=== PATIENT | female | born 1955 | race Caucasian/White ===

== ENCOUNTER 2022-05-15 04:39 | Inpatient (IN) | payer MEDICARE, OTHER ==
[2022-05-15] MEDS ORDERED: SODIUM CHLORIDE 0.9% 1,000 ML IV STA (05:25)
--- NOTE | 2022-05-15 05:26 | ED ---
Neuro HPI - General Chief Complaint: Dizziness Stated Complaint: Lightheaded, weakness Time Seen by Provider: 05/15/22 04:53 Source: patient, family, RN notes reviewed, old records reviewed Mode of arrival: ambulatory Limitations: no limitations - History of Present Illness Is the patient presenting with stroke symptoms?: Yes Last Known Well Time: 23:30 -: hour(s) Initial Comments: This is a 66-year-old female with history of high blood pressure high cholesterol coming in with signs and symptoms of CVA. Patient has right-sided facial droop right-sided weakness compared to left. Patient played golf today with no difficulty and began to have symptoms from midnight tonight called ambulance around 1:00 and presents to emergency room route 5:30 after presenting to another emergency room and [place] telling them to come to [facility] to get further imaging and testing. Patient has no headache also had some mild visual changes. Location: right face, right arm, right leg History of same: No Place: home Severity: mild Quality: weak, numb, tingling Improves With: none Worsens With: none Context: gradual onset Associated Symptoms: denies other symptoms Treatments Prior to Arrival: none - Related Data Allergies/Adverse Reactions: Allergies Allergy/AdvReac Type Severity Reaction Status Date / Time No Known Allergies Allergy Verified 05/15/22 04:52 Review of Systems ROS Statement: Those systems with pertinent positive or pertinent negative responses have been documented in the HPI. ROS Other: All systems not noted in ROS Statement are negative. General Exam General appearance: alert, in no apparent distress Head exam: Present: atraumatic, normocephalic, normal inspection Eye exam: Present: normal appearance, PERRL, EOMI. Absent: scleral icterus, conjunctival injection, periorbital swelling ENT exam: Present: normal exam, mucous membranes moist Neck exam: Present: normal inspection. Absent: tenderness, meningismus, lymphadenopathy Respiratory exam: Present: normal lung sounds bilaterally. Absent: respiratory distress, wheezes, rales, rhonchi, stridor Cardiovascular Exam: Present: regular rate, normal rhythm, normal heart sounds. Absent: systolic murmur, diastolic murmur, rubs, gallop, clicks GI/Abdominal exam: Present: soft, normal bowel sounds. Absent: distended, ten derness, guarding, rebound, rigid Extremities exam: Present: normal inspection, full ROM, normal capillary refill. Absent: tenderness, pedal edema, joint swelling, calf tenderness Back exam: Present: normal inspection Neurological exam: Present: alert, oriented X3, CN II-XII intact Psychiatric exam: Present: normal affect, normal mood Skin exam: Present: warm, dry, intact, normal color. Absent: rash Stroke MDM - Lab Data Result diagrams: 05/15/22 05:25 05/15/22 05:25 Lab Results 05/15/22 05/15/22 05/15/22 Range/Units 05:25 05:25 05:25 WBC 5.2 (3.8-10.6) k/uL RBC 4.05 (3.80-5.40) m/uL Hgb 12.6 (11.4-16.0) gm/dL Hct 37.2 (34.0-46.0) % MCV 92.0 (80.0-100.0) fL MCH 31.0 (25.0-35.0) pg MCHC 33.7 (31.0-37.0) g/dL RDW 13.2 (11.5-15.5) % Plt Count 213 (150-450) k/uL MPV 7.6 Neutrophils % 71 % Lymphocytes % 22 % Monocytes % 5 % Eosinophils % 1 % Basophils % 0 % Neutrophils # 3.7 (1.3-7.7) k/uL Lymphocytes # 1.2 (1.0-4.8) k/uL Monocytes # 0.3 (0-1.0) k/uL Eosinophils # 0.0 (0-0.7) k/uL Basophils # 0.0 (0-0.2) k/uL PT 10.3 (9.0-12.0) sec INR 0.9 (<1.2) APTT 21.3 L (22.0-30.0) sec Sodium 137 (137-145) mmol/L Potassium 4.2 (3.5-5.1) mmol/L Chloride 104 (98-107) mmol/L Carbon Dioxide 24 (22-30) mmol/L Anion Gap 9 mmol/L BUN 16 (7-17) mg/dL Creatinine 0.54 (0.52-1.04) mg/dL Est GFR (CKD-EPI)AfAm >90 (>60 ml/min/1.73 sqM) Est GFR (CKD-EPI)NonAf >90 (>60 ml/min/1.73 sqM) Glucose 118 H (74-99) mg/dL POC Glucose (mg/dL) (70-110) mg/dL POC Glu Poker Dealer ID Calcium 9.1 (8.4-10.2) mg/dL Total Bilirubin 0.7 (0.2-1.3) mg/dL AST 26 (14-36) U/L ALT 28 (4-34) U/L Alkaline Phosphatase 81 (38-126) U/L Troponin I (0.000-0.034) ng/mL Total Protein 6.3 (6.3-8.2) g/dL Albumin 4.3 (3.5-5.0) g/dL Urine Opiates Screen (NotDetected) Ur Oxycodone Screen (NotDetected) Urine Methadone Screen (NotDetected) Ur Propoxyphene Screen (NotDetected) Ur Barbiturates Screen (NotDetected) U Tricyclic Antidepress (NotDetected) Ur Phencyclidine Scrn (NotDetected) Ur Amphetamines Screen (NotDetected) U Methamphetamines Scrn (NotDetected) U Benzodiazepines Scrn (NotDetected) Urine Cocaine Screen (NotDetected) U Marijuana (THC) Screen (NotDetected) 05/15/22 05/15/22 05/15/22 Range/Units 05:25 05:41 05:58 WBC (3.8-10.6) k/uL RBC (3.80-5.40) m/uL Hgb (11.4-16.0) gm/dL Hct (34.0-46.0) % MCV (80.0-100.0) fL MCH (25.0-35.0) pg MCHC (31.0-37.0) g/dL RDW (11.5-15.5) % Plt Count (150-450) k/uL MPV Neutrophils % % Lymphocytes % % Monocytes % % Eosinophils % % Basophils % % Neutrophils # (1.3-7.7) k/uL Lymphocytes # (1.0-4.8) k/uL Monocytes # (0-1.0) k/uL Eosinophils # (0-0.7) k/uL Basophils # (0-0.2) k/uL PT (9.0-12.0) sec INR (<1.2) APTT (22.0-30.0) sec Sodium (137-145) mmol/L Potassium (3.5-5.1) mmol/L Chloride (98-107) mmol/L Carbon Dioxide (22-30) mmol/L Anion Gap mmol/L BUN (7-17) mg/dL Creatinine (0.52-1.04) mg/dL Est GFR (CKD-EPI)AfAm (>60 ml/min/1.73 sqM) Est GFR (CKD-EPI)NonAf (>60 ml/min/1.73 sqM) Glucose (74-99) mg/dL POC Glucose (mg/dL) 118 H (70-110) mg/dL POC Glu Poker Dealer ID Shila Chambers Calcium (8.4-10.2) mg/dL Total Bilirubin (0.2-1.3) mg/dL AST (14-36) U/L ALT (4-34) U/L Alkaline Phosphatase (38-126) U/L Troponin I <0.012 (0.000-0.034) ng/mL Total Protein (6.3-8.2) g/dL Albumin (3.5-5.0) g/dL Urine Opiates Screen Not Detected (NotDetected) Ur Oxycodone Screen Not Detected (NotDetected) Urine Methadone Screen Not Detected (NotDetected) Ur Propoxyphene Screen Not Detected (NotDetected) Ur Barbiturates Screen Not Detected (NotDetected) U Tricyclic Antidepress Not Detected (NotDetected) Ur Phencyclidine Scrn Not Detected (NotDetected) Ur Amphetamines Screen Not Detected (NotDetected) U Methamphetamines Scrn Not Detected (NotDetected) U Benzodiazepines Scrn Not Detected (NotDetected) Urine Cocaine Screen Not Detected (NotDetected) U Marijuana (THC) Screen Not Detected (NotDetected) - NIH Stroke Scale 1a. Level of Consciousness: (0) alert 1b. LOC Questions: (0) answers correctly 1c. LOC Commands: (0) performs tasks correctly 2. Best Gaze: (0) normal 3. Visual: (0) no visual loss 4. Facial Palsy: (1) minor paralysis 5a. Motor Arm Left: (0) no drift 5b. Motor Arm Right: (1) drift 6a. Motor Leg Left: (0) no drift 6b. Motor Leg Right: (1) drift 7. Limb Ataxia: (2) present 2 limbs 8. Sensory: (0) normal 9. Best Language: (0) no aphasia 10. Dysarthria: (0) normal 11. Extinction/Inattention: (0) no abnormality - Thrombolytic Inclusion/Exclusion Thrombolytic Exclusion Criteria: Symptom Onset > 4.5 Hours - Medical Decision Making 66 female with cholesterol high blood pressure coming in with stroke symptoms started around midnight last night seen in our ER around 5:30 this morning. Patient was a code stroke advise against TPA, patient will be admitted for neurology to evaluate - Radiology Data Radiology results: report reviewed (CT brain CT had neck negative for acute disease), image reviewed Past Medical History Past Medical History: Hyperlipidemia, Hypertension History of Any Multi-Drug Resistant Organisms: None Reported Past Surgical History: Breast Surgery Additional Past Surgical History / Comment(s): lymp nodes removed left breast Past Psychological History: No Psychological Hx Reported Smoking Status: Never smoker Past Alcohol Use History: Occasional Past Drug Use History: None Reported Course Vital Signs 05/15/22 05/15/22 05/15/22 04:43 04:52 05:25 Temperature 97.6 F 97.9 F Pulse Rate 57 L 58 L 65 Respiratory 22 16 15 Rate Blood Pressure 127/93 123/69 123/69 O2 Sat by Pulse 99 97 99 Oximetry Fraction of Inspired Oxygen (FIO2) 05/15/22 05/15/22 05/15/22 05:40 05:56 06:10 Temperature Pulse Rate 67 63 Respiratory 15 15 Rate Blood Pressure 128/71 120/66 O2 Sat by Pulse 100 100 Oximetry Fraction of 99 Inspired Oxygen (FIO2) 05/15/22 05/15/22 06:18 06:29 Temperature Pulse Rate 57 L 61 Respiratory 16 15 Rate Blood Pressure 110/72 107/66 O2 Sat by Pulse 100 100 Oximetry Fraction of Inspired Oxygen (FIO2) - Reevaluation(s) Reevaluation #1: 05/15/22 05:56 Medical record is reviewed Reevaluation #2: 05/15/22 05:57 Code stroke paged on patient arrival Reevaluation #3: 05/15/22 06:37 Symptoms are mildly improving here with hydration and oxygenation Reevaluation #4: 05/15/22 06:37 Patient was not a TPA candidate due to onset of symptoms - Consultations Consultation #1: Spoke with sound who agrees to admit this patient Consultation #2: Spoke with neuro interventional is no intervention Critical Care Time Critical Care Time: Yes Total Critical Care Time: 31 Disposition Clinical Impression: CVA (cerebral vascular accident), Dehydration Disposition[facility] Condition: Fair Is patient prescribed a controlled substance at d/c from ED?: No Referrals: Nonstaff,Physician [Primary Care Provider] - 1-2 days Time of Disposition: 06:35
[2022-05-15 05:43] LABS: Glucose,Whole Blood 118 mg/dL (70-110)
[2022-05-15 05:46] LABS: Basophils % (A) 0 %; Eosinophils % (A) 1 %; HCT 37.2 % (34.0-46.0); HGB 12.6 gm/dL (11.4-16.0); Lymphocytes # (A) 1.2 k/uL (1.0-4.8); Lymphocytes % (A) 22 %; MCHC 33.7 g/dL (31.0-37.0); Mean Platelet Volume 7.6; Monocytes # (A) 0.3 k/uL (0-1.0); Monocytes % (A) 5 %; Neutrophils # (A) 3.7 k/uL (1.3-7.7); Neutrophils % (A) 71 %; Platelet Count 213 k/uL (150-450); RBC 4.05 m/uL (3.80-5.40); RDW 13.2 % (11.5-15.5); WBC 5.2 k/uL (3.8-10.6)
[2022-05-15 06:01] LABS: INR 0.9 (<1.2); Prothrombin Time 10.3 sec (9.0-12.0)
[2022-05-15 06:03] LABS: Partial Thromboplastin Time 21.3 sec (22.0-30.0)
[2022-05-15 06:04] LABS: ALT 28 U/L (4-34); AST 26 U/L (14-36); African American GFR (CKD) >90 (>60 ml/min/1.73 sqM); Albumin 4.3 g/dL (3.5-5.0); Alkaline Phosphatase 81 U/L (38-126); Anion Gap 9 mmol/L; Blood Urea Nitrogen 16 mg/dL (7-17); Calcium 9.1 mg/dL (8.4-10.2); Carbon Dioxide 24 mmol/L (22-30); Chloride 104 mmol/L (98-107); Glucose 118 mg/dL (74-99); Non-African American GFR(CKD) >90 (>60 ml/min/1.73 sqM); Potassium 4.2 mmol/L (3.5-5.1); Sodium 137 mmol/L (137-145); Total Bilirubin 0.7 mg/dL (0.2-1.3); Total Protein 6.3 g/dL (6.3-8.2)
--- NOTE | 2022-05-15 06:08 | CT ---
EXAMINATION TYPE: CT brain wo con for TPA DATE OF EXAM: 05/15/2022 COMPARISON: None HISTORY: Neuro deficit, acute, stroke suspected CT DLP: 1446 mGycm Automated exposure control for dose reduction was used. There is mild cerebral cortical atrophy. There is no mass effect or midline shift. No sign of intracr anial hemorrhage. Calvarium is intact. Skull base is intact. There is normal aeration of the mastoid sinuses. IMPRESSION: Mild atrophy. No acute intracranial abnormality.
[2022-05-15 06:14] LABS: Amphetamine Screen,Urine Not Detected (NotDetected); Barbiturate Screen,Urine Not Detected (NotDetected); Benzodiazepines Screen,Urine Not Detected (NotDetected); Cocaine Screen,Urine Not Detected (NotDetected); Methadone Screen, Urine Not Detected (NotDetected); Opiate Screen,Urine Not Detected (NotDetected); Oxycodone Screen, Urine Not Detected (NotDetected); Phencyclidine Screen,Urine Not Detected (NotDetected); Tricyclic Antidepressant,Urine Not Detected (NotDetected); Urn Cannabinoid Scrn Not Detected (NotDetected)
--- NOTE | 2022-05-15 06:18 | CT ---
EXAMINATION TYPE: CT angio head neck DATE OF EXAM: 05/15/2022 COMPARISON: None HISTORY: Neuro deficit, acute, stroke suspected CT DLP: 1446 mGycm Automated exposure control for dose reduction was used. CONTRAST: Performed with IV Contrast, patient injected with 65ml mL of Isovue 370. Images obtained from the aortic arch to the vertex of the brain with IV contrast. There is normal branching pattern of the great vessels on the aortic arch. There is arterial flow in both subclavian arteries. There is arterial flow in the common internal and external carotid arteries bilaterally. There is arterial flow in both vertebral arteries. There is wide patency of the carotid artery bifurcations. No evidence of carotid or vertebral artery aneurysm or dissection. There is art erial flow in the vertebrobasilar artery system. There is arterial flow in the anterior middle and posterior cerebral arteries bilaterally. No mass ef fect. No evidence of intracranial aneurysm or neovascularity. There is normal enhancement of the veno us sinuses. No evidence of intracranial arterial stenosis. There is some mild right-sided sphenoid sinusitis. There is mild right-sided ethmoid sinusitis. There is mild spondylotic changes in the lower cervical spine. No compression fracture. There is disc space narrowing at C5-6 and C6-7. IMPRESSION: Negative CT angiogram of the neck. Negative CT angiogram of the brain.
[2022-05-15] MEDS ORDERED: ASPIRIN 325 MG TAB PO STA (06:33)
[2022-05-15] MEDS: SODIUM CHLORIDE 0.9% 1,000 ML IV SCH ×2 (06:36→16:38)
[2022-05-15] MEDS ORDERED: ACETAMINOPHEN TAB 325 MG TAB PO PRN (08:48)
[2022-05-15] MEDS: ASPIRIN 81 MG PO SCH (09:35)
[2022-05-15] MEDS: ATORVASTATIN 80 MG TAB PO SCH (09:35)
--- NOTE | 2022-05-15 12:32 | CA ---
Transthoracic Echo Report Name: Sarah Hebert Age: 66 Gender: F : 1955 Exam Date: 05/15/2022 10:10 Exam Location: [facility] Ht (in): 62 Wt (lb): 130 Ordering Physician: Real Giron DO Attending/Referring Phys: Neal Saleh MD Adjunct Lecturer Kristie German RDCS Procedure CPT: Indications: Thrombus Cardiac Hx: Breast cancer Technical Quality: Good Contrast 1: Total Dose (mL): Contrast 2: Total Dose (mL): MEASUREMENTS (Male / Female) Normal Values 2D ECHO LV Diastolic Diameter PLAX 4.4 cm 4.2 - 5.9 / 3.9 - 5.3 cm LV Systolic Diameter PLAX 1.6 cm IVS Diastolic Thickness 1.1 cm 0.6 - 1.0 / 0.6 - 0.9 cm LVPW Diastolic Thickness 1.2 cm 0.6 - 1.0 / 0.6 - 0.9 cm LV Relative Wall Thickness 0.5 RV Internal Dim ED PLAX 2.8 cm LVOT Diameter 1.5 cm M-MODE Aortic Root Diameter MM 2.7 cm LA Systolic Diameter MM 3.7 cm LA Ao Ratio MM 1.4 MV E Point Septal Separation 0.6 cm AV Cusp Separation MM 1.3 cm DOPPLER AV Peak Velocity 131.8 cm/s AV Peak Gradient 7.0 mmHg MV Area PHT 3.8 cm??? MR Peak Velocity 109.4 cm/s MR Peak Gradient 4.8 mmHg Mitral E Point Velocity 77.2 cm/s Mitral A Point Velocity 48.6 cm/s Mitral E to A Ratio 1.6 MV Deceleration Time 200.0 ms TR Peak Velocity 146.6 cm/s TR Peak Gradient 8.6 mmHg Right Ventricular Systolic Press 12.8 mmHg FINDINGS Left Ventricle Mildly increased septal wall thickness. Mildly increased posterior wall thickness. Left ventricular ejection fraction is estimated at 55-60 %. Left ventricular cavity size normal. Right Ventricle The right ventricle is normal in size and function. Right Atrium The right atrium is normal in size. Left Atrium The left atrium is normal in size. Mitral Valve Structurally normal mitral valve without significant stenosis or prolapse. There is trace mitral regurgitation. Aortic Valve Structurally normal aortic valve without significant stenosis. There is no aortic regurgitation. Focal thickening of the aortic valve cusps. Tricuspid Valve Structurally normal tricuspid valve without significant stenosis. Pulmonary artery systolic pressure is normal. Trace tricuspid regurgitation. Pulmonic Valve Structurally normal pulmonic valve without significant stenosis. There is no pulmonic regurgitation. Pericardium Normal pericardium without effusion. Aorta Normal aortic root dimension. CONCLUSIONS Mild LVH Normal left ventricular EF 55-60% Trace mitral regurgitation Mild aortic sclerosis Trace tricuspid regurgitation RVSP 12 Previewed by: Dr. Georges Avelar DO (Electronically Signed) Final Date: 15 May 2022 12:31
--- NOTE | 2022-05-15 15:08 | P.HPIM ---
History of Present Illness H&P Date: 05/15/22 History of Presenting Illness: Patient is a very pleasant 66-year-old female with a past medical history of hypertension, hyperlipidemia, and migraines. She presented to the emergency department with a chief complaint of right-sided weakness and facial droop. Patient reports she just before midnight when she was lying down to bed and attempting to go to sleep. Patient reports every time she closed her eyes she saw flashing lights of all different colors and could not fall asleep. Patient reports trying repeatedly but states she just became frustrated because she could not close her eyes so when she attempted to get up she noticed her right side suddenly felt "weird". Patient states that when she noticed she had right- sided weakness in the right side of her face also felt droopy. Patient states she went to the emergency department in [place] and was told that she will need multiple tests and being she did not have insurance in [place] she was advised to return to the emergency department in the for further evaluation and testing. Patient denies having any headache, lightheadedness, dizziness, chest pain, palpitations, nausea, or any other complaints at this time. Patient underwent full evaluation in the emergency department. CT head completed and was negative for acute intercranial process. CBC, coags, and CMP were unremarkable. Troponin negative at less than 0.012. Urine drug screen negative. CTA head and neck also completed negative for acute process. Patient was admitted under our services with consultation to neurology. At time of admission patient reports that she has had full resolution of right-sided weakness , numbness, and ting ling but continues to have very mild right-sided facial droop at this time. Patient reports symptoms subsided around 8 AM. Review of systems: Pertinent positives and negatives as discussed in HPI, a complete review of systems was performed and all other systems are negative. Physical exam: Vital signs reviewed and stable. General: Nontoxic, no distress and appears stated age. Derm: Skin warm and dry, normal coloration for ethnicity. Head: Atraumatic, normocephalic and symmetric. Eyes: EOMs intact, no lid lag, and anicteric sclera Mouth: no lip lesions, mucus membranes moist Cardiovascular: regular rate and rhythm with normal S1S2, no murmur, positive posterior tibial pulses bilaterally, and cap refill < 2 seconds. Lungs: Respirations even, regular, and unlabored on room air. Lungs CTA bilaterally, no rhonchi, no rales, no wheezing, and no accessory muscle usage. Abdominal: soft, nontender to palpation, no guarding, no appreciable organomegaly Ext: ROM intact. No gross muscle atrophy, no edema, no contractures Neuro: Speech clear, face with minimal right-sided facial droop, CN II-XII grossly intact with no noted focal neuro deficits Psych: Alert and oriented to person, place, time, and situation. Appropriate and pleasant affect. Assessment and Plan of Care: Right sided weakness and facial droop, rule out CVA vs TIA vs complex migraine -Neurology consult -NIH stroke assessment -Neuro checks -Telemetry monitoring -Fall precautions -Aspirin and atorvastatin -PT/OT consult -Echocardiogram -Consult the speech and language pathologist Hypertension -Monitor vital signs and continue daily medication regimen with amlodipine and losartan, allow for permissive hypertension over the next 24 hours. Hyperlipidemia -Continue daily medication regimen with atorvastatin. The patient is admitted with an anticipated greater than 2 midnight stay for evaluation of right-sided weakness and facial droop rule out CVA CODE STATUS: Full code DVT prophylaxis: Lovenox Discussed with: Patient and RN Anticipated discharge date: Clinical course to determine Anticipated discharge place: Home A total of 45 minutes was spent on the care of this complex patient more than 50% of the time was spent in counseling and care coordination. I reviewed the documentation as provided by the ROB above, who is the original author of this note. I agree with the documented assessment and plan, with the following changes: none Past Medical History Past Medical History: Hyperlipidemia, Hypertension History of Any Multi-Drug Resistant Organisms: None Reported Past Surgical History: Breast Surgery Additional Past Surgical History / Comment(s): lymp nodes removed left breast Past Psychological History: No Psychological Hx Reported Smoking Status: Never smoker Past Alcohol Use History: Occasional Past Drug Use History: None Reported Medications and Allergies Home Medications Medication Instructions Recorded Confirmed Type Atorvastatin [Lipitor] 40 mg PO DAILY 05/15/22 05/15/22 History Losartan [Cozaar] 50 mg PO DAILY 05/15/22 05/15/22 History Multivitamins, Thera [Multivitamin 1 tab PO DAILY 05/15/22 05/15/22 History (formulary)] Naratriptan HCl [Amerge] 2.5 mg PO DAILY PRN 05/15/22 05/15/22 History amLODIPine [Norvasc] 5 mg PO DAILY 05/15/22 05/15/22 History Aspirin 81 mg PO DAILY 90 Days #90 tab 05/16/22 Rx Clopidogrel [Plavix] 75 mg PO DAILY 21 Days #21 tab 05/16/22 Rx Allergies Allergy/AdvReac Type Severity Reaction Status Date / Time No Known Allergies Allergy Verified 05/15/22 13:34 Physical Exam Osteopathic Statement: *. No significant issues noted on an osteopathic structural exam other than those noted in the History and Physical/Consult. Vitals: Vital Signs Temp Pulse Resp BP Pulse Ox FiO2 05/15/22 06:55 56 L 15 109/64 98 05/15/22 06:34 63 15 126/73 100 05/15/22 06:29 61 15 107/66 100 05/15/22 06:18 57 L 16 110/72 100 05/15/22 06:10 63 15 120/66 100 05/15/22 05:56 99 05/15/22 05:40 67 15 128/71 100 05/15/22 05:25 65 15 123/69 99 05/15/22 04:52 97.9 F 58 L 16 123/69 97 05/15/22 04:43 97.6 F 57 L 22 127/93 99 Intake and Output 05/14/22 05/15/22 05/15/22 22:59 06:59 14:59 Other: Weight 58.967 kg Results CBC & Chem 7: 05/15/22 05:25 05/15/22 05:25 Labs: Abnormal Lab Results - Last 24 Hours (Table) 05/15/22 05/15/22 05/15/22 Range/Units 05:25 05:25 05:41 APTT 21.3 L (22.0-30.0) sec Glucose 118 H (74-99) mg/dL POC Glucose (mg/dL) 118 H (70-110) mg/dL
[2022-05-15] MEDS: amLODIPine 5 MG TAB PO SCH (15:18)
[2022-05-15] MEDS: LOSARTAN 50 MG TAB PO SCH (15:18)
[2022-05-15] MEDS: MULTIVITAMINS, THERA 1 EACH TAB PO SCH (15:18)
[2022-05-15] MEDS: ENOXAPARIN 40 MG/0.4 ML SYRINGE SQ SCH (15:18)
[2022-05-15] MEDS: CLOPIDOGREL 75 MG TAB PO SCH (16:14)
--- NOTE | 2022-05-15 16:25 | P.CNNES ---
History of Present Illness Consult date: 05/15/22 Requesting physician: Real Giron Reason for Consult: CVA History of Present Illness: Patient is a 66-year-old right-handed female female came to the hospital safekeeping clerk today at 4:39 AM for acute onset of neurological symptoms. Patient states that at 11:30 PM last night she was reading a book. Suddenly she noticed, when she would close her eyes, she saw bright red squiggly lines in her vision, which would only occur while her eyes were closed but would go away soon as she opened her eyes. She later noticed that she couldn't read words, couldn't understand. She then felt nauseous. She stood up and couldn't stand up. Her both legs felt weak. She called her who took her to the bathroom. She started throwing up bile, with dry heaving. Patient's checked her blood pressure was low and oxygen saturation was also low around 49. The blood pressure was then went up. He noticed it she had glazy eye, was pale. She noticed that instead of bright red squiggly lines in her vision, she was noticing black dots in her vision only with closing eyes. It was more on the left side. Patient also had droopy face on the right side, and the right side was weak, tingling in the right arm up and down. Patient states that the symptoms lasted for about 45 minutes and then completely went away. She initially went to a hospital in [place], from where she was recommended to go to the hospital in . Vital signs arrival blood pressure 127/93 pulse rate 57 temperature 97.6. Blood test shows normal CBC, PT/PTT, normal CMP, troponin negative, urine drug screen negative. CT head showed mild atrophy, no acute intracranial abnormality. CTA of head and neck reported as negative. When patient arrived in the ER, NIH stroke scale was 5 as per ED report. This included right facial palsy, right arm drift, right leg drift and ataxia in 2 extremities. Patient was considered not a candidate for TPA as her symptoms were present for > 4.5 hours. ED staff discuss case with neuro intervention, and no intervention was indicated. Patient has hypertension for 6 months. Denies diabetes. She had history of hyperthyroidism diagnosed 4 years ago. Does not smoke tobacco. She drinks a g lass of wine once or twice a week. She does take a cholesterol medication. Patient states she has very strong family history of strokes and TIA in multiple family members. Patient's mother had CEA, brother had a CVA at age 58. Review of Systems Constitutional: Denies chills, Denies fever Eyes: bilateral blurred vision, denies diplopia, denies pain Ears, nose, mouth and throat: Denies headache, Denies sore throat Cardiovascular: Denies chest pain, Denies shortness of breath Respiratory: Denies cough Gastrointestinal: Denies abdominal pain, Denies diarrhea, Denies nausea, Denies vomiting Genitourinary: Denies dysuria, Denies hematuria Musculoskeletal: Denies myalgias Integumentary: Denies pruritus, Denies rash Neurological: Reports as per HPI Psychiatric: Denies anxiety, Denies depression Endocrine: Denies excessive sweating, Denies polydipsia Hematologic/Lymphatic: Denies easy bruising Allergic/Immunologic: Denies persistent infections Past Medical History Past Medical History: Hyperlipidemia, Hypertension History of Any Multi-Drug Resistant Organisms: None Reported Past Surgical History: Breast Surgery Additional Past Surgical History / Comment(s): lymp nodes removed left breast Past Psychological History: No Psychological Hx Reported Smoking Status: Never smoker Past Alcohol Use History: Occasional Past Drug Use History: None Reported Medications and Allergies Home Medications Medication Instructions Recorded Confirmed Type Atorvastatin [Lipitor] 40 mg PO DAILY 05/15/22 05/15/22 History Losartan [Cozaar] 50 mg PO DAILY 05/15/22 05/15/22 History Multivitamins, Thera [Multivitamin 1 tab PO DAILY 05/15/22 05/15/22 History (formulary)] Naratriptan HCl [Amerge] 2.5 mg PO DAILY PRN 05/15/22 05/15/22 History amLODIPine [Norvasc] 5 mg PO DAILY 05/15/22 05/15/22 History Allergies Allergy/AdvReac Type Severity Reaction Status Date / Time No Known Allergies Allergy Verified 05/15/22 13:34 Physical Examination - Vital Signs Vital Signs: Vital Signs Temp Pulse Resp BP Pulse Ox FiO2 05/15/22 12:17 66 16 118/64 97 05/15/22 11:34 60 17 150/85 97 05/15/22 11:00 124/77 99 05/15/22 10:00 63 21 118/68 98 05/15/22 09:00 55 L 20 103/58 98 05/15/22 08:29 64 20 107/66 99 05/15/22 06:55 56 L 15 109/64 98 05/15/22 06:34 63 15 126/73 100 05/15/22 06:29 61 15 107/66 100 05/15/22 06:18 57 L 16 110/72 100 05/15/22 06:10 63 15 120/66 100 05/15/22 05:56 99 05/15/22 05:40 67 15 128/71 100 05/15/22 05:25 65 15 123/69 99 05/15/22 04:52 97.9 F 58 L 16 123/69 97 05/15/22 04:43 97.6 F 57 L 22 127/93 99 Intake and Output 05/14/22 05/15/22 05/15/22 22:59 06:59 14:59 Other: Weight 58.967 kg Patient is an elderly female, very pleasant, in no acute distress. Patient is alert awake oriented to time place and person. Speech and language functions are normal. Patient can name and repeat very well. No aphasia or dysarthria. Attention, concentration and fund of knowledge is adequate. On cranial nerve examination, pupils are equal, round and reacting to light, visual leyva are full on confrontation, with no neglect on double simultaneous depression. Extraocular muscles are intact with no nystagmus. Face is symmetric, tongue protrudes to the midline. Palatal elevation and sensation normal, hearing and shoulder shrug normal, facial sensation normal. On muscle strength testing, there is no pronator drift and the strength is normal in arms and legs distally and proximally. Deep tendon reflexes are symmetric 1+ in the upper limbs, 2 at the knees 1 ankles and plantars downgoing. Sensory to touch is equal with no neglect on double simultaneous stimulation. Cerebellar function showed no ataxia for [id number] testing. No dysdiadochokinesia. No ataxia for [id number] testing on either side. Tone and bulk of muscles normal. Gait deferred.. On general examination, there is no carotid bruit or murmur, S1-S2 audible. Chest is clear on consultation. Abdomen is soft nontender. No organomegaly, bowel sounds present. Peripheral pulses are present. No edema. Results - Laboratory Findings CBC and BMP: 05/15/22 05:25 05/15/22 05:25 Abnormal Lab Findings: Abnormal Labs 05/15/22 05/15/22 05/15/22 05:25 05:25 05:41 APTT 21.3 L Glucose 118 H POC Glucose (mg/dL) 118 H Assessment and Plan Assessment: * Probable TIA manifesting with transient visual disturbance, and right-sided weakness. Her visual symptoms resolved in 45 minutes, but the right-sided weakness lasted for several hours. In the ED report, it appears that patient still has significant deficits with NIH stroke scale of 5 when she arrived to the ER 5 hours after onset of symptoms. However at this time all symptoms have resolved, with NIH stroke scale of 0. * Hypertension * Hyperlipidemia * History of hyperthyroidism 4 years ago. * Strong family history of coronary artery and cerebrovascular disease. Plan: * Patient had a probable TIA. Her visual symptoms resolved in 45 minutes, but focal symptoms lasted for several hours. At present her NIH stroke scale is 0. Her ABCD2 score is 5. She was not taking any antiplatelet medication. Patient will be placed on dual antiplatelet medication for 21 days, including Plavix 75 mg and aspirin 81 mg. Thereafter Plavix can be discontinued and maintain on aspirin 81 mg daily indefinitely. * CTA of head and neck reported as negative * 2-D echo revealed mild left ventricular hypertrophy. EF is 55-60%. Trace MR. Mild aortic sclerosis. Trace tricuspid regurgitation. EF is 55-60% * Fasting a.m. lipid panel * Hemoglobin A1c * TSH * Telemetry monitoring * We discussed about brain MRI. Uncertain if it can be done over the weekend. Overall it will not change the management, as the treatment will stay the same. * Consider 21 day event monitor to rule out paroxysmal atrial fibrillation. * Clear for discharge if he remains stable overnight. Thank you for the consult. Discussed with primary physician.
[2022-05-16] MEDS: SODIUM CHLORIDE 0.9% 1,000 ML IV SCH ×2 (00:55→22:28)
[2022-05-16] MEDS: CLOPIDOGREL 75 MG TAB PO SCH (07:59)
[2022-05-16] MEDS: LOSARTAN 50 MG TAB PO SCH (07:59)
[2022-05-16] MEDS: MULTIVITAMINS, THERA 1 EACH TAB PO SCH (07:59)
[2022-05-16] MEDS: ENOXAPARIN 40 MG/0.4 ML SYRINGE SQ SCH (07:59)
[2022-05-16] MEDS: ASPIRIN 81 MG PO SCH (07:59)
[2022-05-16] MEDS: ATORVASTATIN 80 MG TAB PO SCH (07:59)
[2022-05-16] MEDS: amLODIPine 5 MG TAB PO SCH (07:59)
--- NOTE | 2022-05-16 10:47 | P.DS ---
Providers Date of admission: 05/15/22 06:33 Expected date of discharge: 05/16/22 Attending physician: Kenroy Del Rio MD Consults: 05/15/22 06:33 Consult Physician Routine Consulting Provider: Benny Cobb Consult Reason/Comments: cva Do you want consulting provider notified?: Yes Primary care physician: Physician Nonstaff Hospital Course: Discharge Diagnosis: Hospital Course: Patient is a very pleasant 66-year-old female with a past medical history of hypertension, hyperlipidemia, and migraines. She presented to the emergency department with a chief complaint of right-sided weakness and facial droop. Patient reports she just before midnight when she was lying down to bed and att empting to go to sleep. Patient reports every time she closed her eyes she saw flashing lights of all different colors and could not fall asleep. Patient reports trying repeatedly but states she just became frustrated because she could not close her eyes so when she attempted to get up she noticed her right side suddenly felt "weird". Patient states that when she noticed she had right- sided weakness in the right side of her face also felt droopy. Patient states she went to the emergency department in [place] and was told that she will need multiple tests and being she did not have insurance in [place] she was advised to return to the emergency department in the for further evaluation and testing. Patient denies having any headache, lightheadedness, dizziness, chest pain, palpitations, nausea, or any other complaints at this time. Patient underwent full evaluation in the emergency department. CT head completed and was negative for acute intercranial process. CBC, coags, and CMP were unremarkable. Troponin negative at less than 0.012. Urine drug screen negative. CTA head and neck also completed negative for acute process. Patient was admitted under our services with consultation to neurology. At time of admission patient reports that she has had full resolution of right-sided weakness , numbness, and tingling but continues to have very mild right-sided facial droop at this time. Patient reports symptoms subsided around 8 AM. Review of systems: Pertinent positives and negatives as discussed in HPI, a complete review of systems was performed and all other systems are negative. Physical exam: Vital signs reviewed and stable. General: Nontoxic, no distress and appears stated age. Derm: Skin warm and dry, normal coloration for ethnicity. Head: Atraumatic, normocephalic and symmetric. Eyes: EOMs intact, no lid lag, and anicteric sclera Mouth: no lip lesions, mucus membranes moist Cardiovascular: regular rate and rhythm with normal S1S2, no murmur, positive posterior tibial pulses bilaterally, and cap refill < 2 seconds. Lungs: Respirations even, regular, and unlabored on room air. Lungs CTA bilaterally, no rhonchi, no rales, no wheezing, and no accessory muscle usage. Abdominal: soft, nontender to palpation, no guarding, no appreciable organomegaly Ext: ROM intact. No gross muscle atrophy, no edema, no contractures Neuro: Speech clear, face with minimal right-sided facial droop, CN II-XII grossly intact with no noted focal neuro deficits Psych: Alert and oriented to person, place, time, and situation. Appropriate and pleasant affect. Assessment and Plan of Care: Right sided weakness and facial droop, rule out CVA vs TIA vs complex migraine -Neurology consult -NIH stroke assessment -Neuro checks -Telemetry monitoring -Fall precautions -Aspirin and atorvastatin -PT/OT consult -Echocardiogram -Consult the speech and language pathologist Hypertension -Monitor vital signs and continue daily medication regimen with amlodipine and losartan, allow for permissive hypertension over the next 24 hours. Hyperlipidemia -Continue daily medication regimen with atorvastatin. A total of [ ] minutes of time were spent preparing this complex discharge summary. Pt was discharged on [ ] at [ ] Patient Condition at Discharge: Stable Plan - Discharge Summary New Discharge Prescriptions: New Aspirin 81 mg PO DAILY 90 Days #90 tab Clopidogrel [Plavix] 75 mg PO DAILY 21 Days #21 tab Continue Losartan [Cozaar] 50 mg PO DAILY Atorvastatin [Lipitor] 40 mg PO DAILY amLODIPine [Norvasc] 5 mg PO DAILY Multivitamins, Thera [Multivitamin (formulary)] 1 tab PO DAILY Naratriptan HCl [Amerge] 2.5 mg PO DAILY PRN PRN Reason: Migraine Headache Discharge Medication List Atorvastatin [Lipitor] 40 mg PO DAILY 05/15/22 [History] Losartan [Cozaar] 50 mg PO DAILY 05/15/22 [History] Multivitamins, Thera [Multivitamin (formulary)] 1 tab PO DAILY 05/15/22 [History] Naratriptan HCl [Amerge] 2.5 mg PO DAILY PRN 05/15/22 [History] amLODIPine [Norvasc] 5 mg PO DAILY 05/15/22 [History] Aspirin 81 mg PO DAILY 90 Days #90 tab 05/16/22 [Rx] Clopidogrel [Plavix] 75 mg PO DAILY 21 Days #21 tab 05/16/22 [Rx] Follow up Appointment(s)/Referral(s): Georges Avelar DO [STAFF PHYSICIAN] - 1 Week (please schedule an appointment for evaluation for event monitor) Anita Blanton MD [REFERRING] - 1 Week Activity/Diet/Wound Care/Special Instructions: Activity: As tolerated. Take breaks as needed. Diet: Heart healthy and carb consistent diet. Avoid salts, or foods with hidden salts such as canned or boxed foods and frozen dinners. Extra salt makes your heart work harder and traps the fluid in your body for longer. Special Instructions: Take all of your medications as directed and remember to keep all of your doctor's appointments and follow-up as needed. Thank you for allowing us to participate in your care, it was truly a pleasure having you for our patient!!! Discharge Disposition: HOME SELF-CARE
--- NOTE | 2022-05-16 10:53 | P.PN ---
Subjective Progress Note Date: 05/16/22 Hospital course: Patient is a very pleasant 66-year-old female with a past medical history of hypertension, hyperlipidemia, and migraines. She presented to the emergency department with a chief complaint of right-sided weakness and facial droop. Patient reports she just before midnight when she was lying down to bed and attempting to go to sleep. Patient reports every time she closed her eyes she saw flashing lights of all different colors and could not fall asleep. Patient reports trying repeatedly but states she just became frustrated because she could not close her eyes so when she attempted to get up she noticed her right side suddenly felt "weird". Patient states that when she noticed she had right- sided weakness in the right side of her face also felt droopy. Patient states she went to the emergency department in [place] and was told that she will need multiple tests and being she did not have insurance in [place] she was advised to return to the emergency department in the for further evaluation and testing. Patient denies having any headache, lightheadedness, dizziness, chest pain, palpitations, nausea, or any other complaints at this time. Patient underwent full evaluation in the emergency department. CT head completed and was negative for acute intercranial process. CBC, coags, and CMP were unremarkable. Troponin negative at less than 0.012. Urine drug screen negative. CTA head and neck also completed negative for acute process. Patient was admitted under our services with consultation to neurology. At time of admission patient reports that she has had full resolution of right-sided weakness , numbness, and tingling but continues to have very mild right-sided facial droop at this time. Patient reports symptoms subsided around 8 AM. Patient monitored overnight. Symptoms of right-sided weakness, facial droop, and visual changes remain resolved at this time. Neurology recommending event monitor placement and MRI to be completed. Physical exam: Patient seen and fully evaluated at bedside this morning. She continues to have full resolution of right-sided weakness and facial droop. She denies having any further episodes of visual changes/flashing lights. Symptoms have been resolved for greater than 24 hours. Patient remains on dual antiplatelet therapy with aspirin and Plavix. Neurology recommending MRI and event monitor to be placed prior to discharge. Vital signs reviewed and stable. General: Nontoxic, no distress and appears stated age. Derm: Skin warm and dry, normal coloration for ethnicity. Head: Atraumatic, normocephalic and symmetric. Eyes: EOMs intact, no lid lag, and anicteric sclera Mouth: no lip lesions, mucus membranes moist Cardiovascular: regular rate and rhythm with normal S1S2, no murmur, positive posterior tibial pulses bilaterally, and cap refill < 2 seconds. Lungs: Respirations even, regular, and unlabored on room air. Lungs CTA bilaterally, no rhonchi, no rales, no wheezing, and no accessory muscle usage. Abdominal: soft, nontender to palpation, no guarding, no appreciable organomegaly Ext: ROM intact. No gross muscle atrophy, no edema, no contractures. Neuro: Speech clear, face with minimal right-sided facial droop, CN II-XII grossly intact with no other noted focal neuro deficits Psych: Alert and oriented to person, place, time, and situation. Appropriate and pleasant affect. Assessment and Plan of Care: Right sided weakness and facial droop, rule out CVA vs TIA vs complex migraine -Neurology consulted, recommending MRI and placement of a fat monitor prior to discharge -NIH stroke assessment initially 5 upon arrival to our facility -Neuro checks -Telemetry monitoring -Fall precautions -Aspirin and atorvastatin -PT/OT consult -Echocardiogram revealing normal EF of 55-60% with trace mitral and tricuspid regurgitation as well as mild aortic sclerosis. -Consult the speech and language pathologist Hypertension -Monitor vital signs and continue daily medication regimen with amlodipine and losartan, allow for permissive hypertension over the next 24 hours. Hyperlipidemia -Continue daily medication regimen with atorvastatin. CODE STATUS: Full code DVT prophylaxis: Lovenox Discussed with: Patient, patient and RN Anticipated discharge date: Clinical course to determine Anticipated discharge place: Home A total of 35 minutes was spent on the care of this complex patient more than 50% of the time was spent in counseling and care coordination. Objective - Vital Signs Vital signs: Vital Signs Temp 97.9 F 05/16/22 07:16 Pulse 72 05/16/22 08:06 Resp 17 05/16/22 08:06 BP 109/68 05/16/22 07:16 Pulse Ox 98 05/16/22 07:16 FiO2 99 05/15/22 05:56 Intake & Output 05/15/22 05/16/22 05/16/22 18:59 06:59 18:59 Weight 58.967 kg Other: Voiding Method Toilet Toilet # Voids 1 2 3 # Bowel Movements 1 - Labs CBC & Chem 7: 05/15/22 05:25 05/15/22 05:25
[2022-05-16 11:44] LABS: Chol/HDL Ratio 2.78 Ratio; LDL Cholesterol,Calculated 132.2 mg/dL (0.0-131.0); VLDL Calculation 10.46 mg/dL (5.00-40.00)
--- NOTE | 2022-05-17 01:20 | P.PN ---
Subjective Progress Note Date: 05/16/22 Patient was seen for a follow-up. Patient's was also present today. Patient's mentioned that at the time of patient's acute symptoms when she was dizzy lightheaded and vomiting, he almost felt the patient will not survive. She was pale. He mentioned that her blood pressure was low systolic 88, but then went up and became high. Her blood pressure was very unstable during this event. Patient's visual symptoms consisting of red squiggly lines lasted for 45 minutes, but black dots in her vision noticed on closing her eyes was present even by the time she came to the ER. However all symptoms have now completely resolved. Her telemetry monitoring showing some sinus rhythm. No other arrhythmia. Objective - Vital Signs Vital signs: Vital Signs Temp 97.9 F 05/16/22 07:16 Pulse 72 05/16/22 08:06 Resp 17 05/16/22 08:06 BP 109/68 05/16/22 07:16 Pulse Ox 98 05/16/22 07:16 FiO2 99 05/15/22 05:56 Intake & Output 05/15/22 05/16/22 05/16/22 18:59 06:59 18:59 Weight 58.967 kg Other: Voiding Method Toilet Toilet # Voids 1 2 3 # Bowel Movements 1 - Exam Patient's neurological examination is completely normal except for very mild right pronator drift. Speech and language functions, cranial nerves are normal. No facial droop. Visual leyva are full. No ataxia. Sensations are equal with no neglect. Muscle strength completely normal. - Labs CBC & Chem 7: 05/15/22 05:25 05/15/22 05:25 Labs: Abnormal Lab Results - Last 24 Hours (Table) 05/15/22 Range/Units 05:25 Cholesterol 223.00 H (0.00-200.00) mg/dL LDL Cholesterol, Calc 132.2 H (0.0-131.0) mg/dL HDL Cholesterol 80.30 H (40.00-60.00) mg/dL Assessment and Plan Assessment: * Probable TIA in the posterior circulation, manifesting with transient visual disturbance, and right-sided weakness. Her visual symptoms resolved in 45 minutes, but the right-sided weakness lasted for several hours. In the ED report, it appears that patient still has significant deficits with NIH stroke scale of 5 when she arrived to the ER 5 hours after onset of symptoms. All her symptoms have resolved. * Hypertension * Hyperlipidemia * History of hyperthyroidism 4 years ago. * Strong family history of coronary artery and cerebrovascular disease. Plan: * Continue dual antiplatelet medication for 21 days, including Plavix 75 mg and aspirin 81 mg. Thereafter Plavix can be discontinued and maintain on aspirin 81 mg daily indefinitely. Patient was not taking any antiplatelet medication at home prior to arrival. * CTA of head and neck reported as negative * 2-D echo revealed mild left ventricular hypertrophy. EF is 55-60%. Trace MR. Mild aortic sclerosis. Trace tricuspid regurgitation. EF is 55-60% * Fasting a.m. lipid panel with cholesterol 223, LDL 132, HDL 80 and triglycerides 52. Patient was on Lipitor 40 mg at home. Does increase to 80 mg. * Hemoglobin A1c 5.5 * TSH 0.893. * Telemetry monitoring showing no arrhythmia. * MRI of brain evaluate for CVA. * Patient to undergo 21-30 day event monitor to rule out paroxysmal atrial fibrillation. Patient to follow up with her drum operator in [place] after discharge. * Dr. Kelvin Bautista Will resume neurology service in the morning.
[2022-05-17] MEDS: ENOXAPARIN 40 MG/0.4 ML SYRINGE SQ SCH (09:36)
[2022-05-17] MEDS: LOSARTAN 50 MG TAB PO SCH (09:36)
[2022-05-17] MEDS: CLOPIDOGREL 75 MG TAB PO SCH (09:37)
[2022-05-17] MEDS: ATORVASTATIN 80 MG TAB PO SCH (09:37)
[2022-05-17] MEDS: ASPIRIN 81 MG PO SCH (09:37)
[2022-05-17] MEDS: MULTIVITAMINS, THERA 1 EACH TAB PO SCH (09:37)
[2022-05-17] MEDS: amLODIPine 5 MG TAB PO SCH (09:37)
--- NOTE | 2022-05-17 11:40 | MR ---
EXAMINATION TYPE: MR brain wo con DATE OF EXAM: 05/17/2022 11:00 AM COMPARISON: CT 05/15/2022. CLINICAL INDICATION:Female, 66 years old with history of Stroke/TIA; TECHNIQUE: Multi planar, multi sequence imaging was performed through the brain including: T1, T2, In version recovery, Diffusion weighted imaging, and gradient echo imaging. No gadolinium was given. FINDINGS: The burgess-white junctions, ventricular system, and cisterns appear unremarkable. Patchy areas of high T2 signal intensity are seen within the periventricular white matter. Midline structures show no abn ormality. Diffusion-weighted imaging shows no evidence of restricted diffusion. The susceptibility we ighted images do not reveal any evidence for micro-hemorrhage. The bone marrow signal is within normal limits. The paranasal sinuses demonstrate scattered mucosal t hickening most pronounced in the more lateral sphenoid sinus on the right. The globes are grossly unr emarkable. IMPRESSION: 1. No evidence of intracranial mass or acute/subacute infarct. 2. Nonspecific white matter changes, likely secondary to small vessel ischemic disease.
--- NOTE | 2022-05-17 12:28 | P.PN ---
Subjective Progress Note Date: 05/17/22 I am seeing the patient for the first time during this admission. Please refer Dr. Cobb's note for further details. It seems patient has transient visual disturbance and right sided weakness and possible TIA was concern. She feels back to baseline and denies of any focal deficits. She is accompanied by her who agrees she is doing better. Pending MRI Brain. Objective - Vital Signs Vital signs: Vital Signs Temp 97.3 F L 05/17/22 07:36 Pulse 69 05/17/22 07:36 Resp 18 05/17/22 07:36 BP 134/85 05/17/22 07:36 Pulse Ox 98 05/17/22 07:36 FiO2 99 05/15/22 05:56 Intake & Output 05/16/22 05/17/22 05/17/22 18:59 06:59 18:59 Other: Voiding Method Toilet Toilet # Voids 2 3 # Bowel Movements 1 - Exam GENERAL: The patient is lying in bed and is not in acute distress. NEUROLOGICAL: Higher mental function: The patient is awake, alert, oriented to self, place and time. Patient is following commands. No aphasia and no neglect. Cranial nerves: The pupils are round, equal and reactive to light and accommodation. Visual leyva are full to confrontation throughout. Extraocular movement is intact no nystagmus is noted. Facial sensation is normal to touch throughout. The facial strength is normal throughout. Tongue is midline and moved [id number] without any difficulty. No dysarthria is noted. Shoulder shrug is normal bilaterally. Motor: The strength is 5 over 5 throughout. Normal tone and bulk. Cerebellum: Normal finger to nose bilaterally. Sensation: Sensation is normal to touch throughout. - Labs CBC & Chem 7: 05/15/22 05:25 05/15/22 05:25 Labs: Abnormal Lab Results - Last 24 Hours (Table) 05/15/22 Range/Units 05:25 Cholesterol 223.00 H (0.00-200.00) mg/dL LDL Cholesterol, Calc 132.2 H (0.0-131.0) mg/dL HDL Cholesterol 80.30 H (40.00-60.00) mg/dL Assessment and Plan Assessment: * Probable TIA in the posterior circulation, manifesting with transient visual disturbance, and right-sided weakness. Her visual symptoms resolved in 45 minutes, but the right-sided weakness lasted for several hours. In the ED report, it appears that patient still has significant deficits with NIH stroke scale of 5 when she arrived to the ER 5 hours after onset of symptoms. All her symptoms have resolved. * Hypertension * Hyperlipidemia * History of hyperthyroidism 4 years ago. * Strong family history of coronary artery and cerebrovascular disease. Plan: * Continue dual antiplatelet medication for 21 days, including Plavix 75 mg and aspirin 81 mg. Thereafter Plavix can be discontinued and maintain on aspirin 81 mg daily indefinitely. Patient was not taking any antiplatelet medication at home prior to arrival. * CTA of head and neck reported as negative * 2-D echo revealed mild left ventricular hypertrophy. EF is 55-60%. Trace MR. Mild aortic sclerosis. Trace tricuspid regurgitation. EF is 55-60% * Fasting a.m. lipid panel with cholesterol 223, LDL 132, HDL 80 and triglycerides 52. Patient was on Lipitor 40 mg at home. Does increase to 80 mg. * Hemoglobin A1c 5.5 * TSH 0.893. * MRI of brain evaluate for CVA: Was completed and I personally reviewed and no acute or subacute ischemic stroke. Pending radiology report. * Patient to undergo 21-30 day event monitor to rule out paroxysmal atrial fibrillation. Patient to follow up with her gasoline finisher in [place] after discharge. * Recommend patient to follow-up with neurologist as outpatient within 1-2 weeks. If MRI Brain report is back and confirms no acute or subacute ischemic stroke. No additional work-up is needed. Patient is clear for discharge after event monitor placement (per Dr. Cobb's request). Kelvin Bautista M.D. Neuro-Hospitalist Time with Patient: Less than 30
[2022-05-17] MEDS ORDERED: ALPRAZolam 0.5 MG TAB PO STA (13:46)
--- NOTE | 2022-05-17 14:06 | P.PN ---
Subjective Progress Note Date: 05/17/22 Hospital course: Patient is a very pleasant 66-year-old female with a past medical history of hypertension, hyperlipidemia, and migraines. She presented to the emergency department with a chief complaint of right-sided weakness and facial droop. Patient reports she just before midnight when she was lying down to bed and attempting to go to sleep. Patient reports every time she closed her eyes she saw flashing lights of all different colors and could not fall asleep. Patient reports trying repeatedly but states she just became frustrated because she coul d not close her eyes so when she attempted to get up she noticed her right side suddenly felt "weird". Patient states that when she noticed she had right-sided weakness in the right side of her face also felt droopy. Patient states she went to the emergency department in [place] and was told that she will need multiple tests and being she did not have insurance in [place] she was advised to return to the emergency department in the for further evaluation and testing. Patient denies having any headache, lightheadedness, dizziness, chest pain, palpitations, nausea, or any other complaints at this time. Patient underwent full evaluation in the emergency department. CT head completed and was negative for acute intercranial process. CBC, coags, and CMP were unremarkable. Troponin negative at less than 0.012. Urine drug screen negative. CTA head and neck also completed negative for acute process. Patient was admitted under our services with consultation to neurology. At time of admission patient reports that she has had full resolution of right-sided weakness , numbness, and ti ngling but continues to have very mild right-sided facial droop at this time. Patient reports symptoms subsided around 8 AM. Patient monitored overnight. Symptoms of right-sided weakness, facial droop, and visual changes remain resolved at this time. Neurology recommending event monitor placement and MRI to be completed. Physical exam: Patient seen and fully evaluated at bedside this morning. She is scheduled to undergo MRI later this morning at 10 AM and awaiting event monitor To be completed. Patient is free from any neurological deficits at this time and currently denies having any complaints. Plan for discharge within the next 24 hours. Vital signs reviewed and stable. General: Nontoxic, no distress and appears stated age. Derm: Skin warm and dry, normal coloration for ethnicity. Head: Atraumatic, normocephalic and symmetric. Eyes: EOMs intact, no lid lag, and anicteric sclera Mouth: no lip lesions, mucus membranes moist Cardiovascular: regular rate and rhythm with normal S1S2, no murmur, positive posterior tibial pulses bilaterally, and cap refill < 2 seconds. Lungs: Respirations even, regular, and unlabored on room air. Lungs CTA bilaterally, no rhonchi, no rales, no wheezing, and no accessory muscle usage. Abdominal: soft, nontender to palpation, no guarding, no appreciable organomegaly Ext: ROM intact. No gross muscle atrophy, no edema, no contractures. Neuro: Speech clear, face symmetrical, CN II-XII grossly intact with no other noted focal neuro deficits Psych: Alert and oriented to person, place, time, and situation. Appropriate and pleasant affect. Assessment and Plan of Care: Right sided weakness and facial droop, rule out CVA vs TIA vs complex migraine -Neurology consulted, recommending MRI and placement of a fat monitor prior to discharge -NIH stroke assessment initially 5 upon arrival to our facility -Neuro checks -Telemetry monitoring -Fall precautions -Aspirin and atorvastatin -PT/OT consult -Echocardiogram revealing normal EF of 55-60% with trace mitral and tricuspid regurgitation as well as mild aortic sclerosis. -Consult the speech and language pathologist Hypertension -Monitor vital signs and continue daily medication regimen with amlodipine and losartan, allow for permissive hypertension over the next 24 hours. Hyperlipidemia -Continue daily medication regimen with atorvastatin. CODE STATUS: Full code DVT prophylaxis: Lovenox Discussed with: Patient, patient and RN Anticipated discharge date: Clinical course to determine Anticipated discharge place: Home A total of 35 minutes was spent on the care of this complex patient more than 50% of the time was spent in counseling and care coordination. Objective - Vital Signs Vital signs: Vital Signs Temp 97.3 F L 05/17/22 07:36 Pulse 69 05/17/22 07:36 Resp 18 05/17/22 07:36 BP 134/85 05/17/22 07:36 Pulse Ox 98 05/17/22 07:36 FiO2 99 05/15/22 05:56 Intake & Output 05/16/22 05/17/22 05/17/22 18:59 06:59 18:59 Other: Voiding Method Toilet Toilet # Voids 2 3 # Bowel Movements 1 - Labs CBC & Chem 7: 05/15/22 05:25 05/15/22 05:25 Labs: Abnormal Lab Results - Last 24 Hours (Table) 05/15/22 Range/Units 05:25 Cholesterol 223.00 H (0.00-200.00) mg/dL LDL Cholesterol, Calc 132.2 H (0.0-131.0) mg/dL HDL Cholesterol 80.30 H (40.00-60.00) mg/dL
--- NOTE | 2022-05-17 14:37 | CT ---
EXAMINATION TYPE: CT chest angio for PE CT DLP: 264.2 mGycm, Automated exposure control for dose reduction was used. DATE OF EXAM: 05/17/2022 2:16 PM COMPARISON: None CLINICAL INDICATION:Female, 66 years old with history of hypoxia, sob, and near syncopal episode; hyp oxia, SOB TECHNIQUE/CONTRAST: CTA scan of the thorax is performed with IV Contrast, patient injected with 100 mL of Isovue 370, pul monary embolism protocol. MIP images are created and reviewed. FINDINGS: Pulmonary Artery: There is no evidence for a filling defect within the pulmonary vasculature to sugge st acute pulmonary embolism. The pulmonary artery is of normal size. Lungs/Pleura: No evidence of focal consolidation, pleural effusion or pneumothorax. Airway: Large airways are patent. Heart: Heart is within normal limits for size. Mild coronary artery atherosclerosis. Vasculature: No evidence of aortic aneurysm. Mediastinum: No gross evidence of adenopathy. Musculoskeletal: No acute osseous abnormalities, mild multilevel disc degeneration changes no suspici ous osseous lesions identified. Soft Tissues: Left axillary breast clips are noted. Calcified left lower breast calcifications. Lower neck: No significant findings. Upper Abdomen: Left non obstructing calculi measuring up to 3 mm. Left hepatic lobe cyst. IMPRESSION: 1. No evidence of pulmonary embolism. 2. Post interventional changes to the left breast. 2. Nonobstructing left renal calculi.
[2022-05-17] MEDS: SODIUM CHLORIDE 0.9% 1,000 ML IV SCH (20:09)
[2022-05-18] MEDS: SODIUM CHLORIDE 0.9% 1,000 ML IV SCH (02:23)
[2022-05-18 07:48] VITALS: BP 144/82; PULSE 71; RESP 17; TEMP 98
[2022-05-18] MEDS: LOSARTAN 50 MG TAB PO SCH (09:20)
[2022-05-18] MEDS: amLODIPine 5 MG TAB PO SCH (09:20)
[2022-05-18] MEDS: ENOXAPARIN 40 MG/0.4 ML SYRINGE SQ SCH (09:20)
[2022-05-18] MEDS: CLOPIDOGREL 75 MG TAB PO SCH (09:20)
[2022-05-18] MEDS: ASPIRIN 81 MG PO SCH (09:20)
[2022-05-18] MEDS: ATORVASTATIN 80 MG TAB PO SCH (09:20)
[2022-05-18] MEDS: MULTIVITAMINS, THERA 1 EACH TAB PO SCH (09:24)
--- NOTE | 2022-05-18 17:14 | P.DS ---
Providers Date of admission: 05/15/22 06:33 Expected date of discharge: 05/18/22 Attending physician: Kenroy Del Rio MD Consults: 05/15/22 06:33 Consult Physician Routine Consulting Provider: Benny Cobb Consult Reason/Comments: cva Do you want consulting provider notified?: Yes Primary care physician: Physician Nonstaff Hospital Course: Discharge Diagnosis: Right sided weakness and facial droop, TIA. Patient discharged home on dual antiplatelet therapy with aspirin and Plavix. Patient to follow up outpatient with PCP and neurologist. Patient also discharged home with event monitor in which she is to follow-up with her manager office services upon return to her hometown. Hypertension. Monitor vital signs and continue daily medication regimen with amlodipine and losartan, allow for permissive hypertension over the next 24 hours. Hyperlipidemia. Continue daily medication regimen with atorvastatin. Hospital Course: Patient is a very pleasant 66-year-old female with a past medical history of hypertension, hyperlipidemia, and migraines. She presented to the emergency department with a chief complaint of right-sided weakness and facial droop. Patient reports she just before midnight when she was lying down to bed and attempting to go to sleep. Patient reports every time she closed her eyes she saw flashing lights of all different colors and could not fall asleep. Patient reports trying repeatedly but states she just became frustrated because she could not close her eyes so when she attempted to get up she noticed her right side suddenly felt "weird". Patient states that when she noticed she had right- sided weakness in the right side of her face also felt droopy. Patient states she went to the emergency department in [place] and was told that she will need multiple tests and being she did not have insurance in [place] she was advised to return to the emergency department in the for further evaluation and testing. Patient denies having any headache, lightheadedness, dizziness, chest pain, palpitations, nausea, or any other complaints at this time. Patient underwent full evaluation in the emergency department. CT head completed and was negative for acute intercranial process. CBC, coags, and CMP were unremarkable. Troponin negative at less than 0.012. Urine drug screen negative. CTA head and neck also completed negative for acute process. Patient was admitted under our services with consultation to neurology. At time of admission patient reports that she has had full resolution of right-sided weakness , numbness, and tingling but continues to have very mild right-sided facial droop at this time. Patient reports symptoms subsided around 8 AM. Patient monitored overnight. Symptoms of right-sided weakness, facial droop, and visual changes remain resolved at this time. Neurology recommending event monitor placement and MRI to be completed. MRI was completed showing no evidence of intercranial mass or acute/subacute infarct with nonspecific white matter changes likely secondary to small vessel ischemic disease. Shortly after return from MRI. She reports she was on the phone with her daughter when she forgot the name of the test that she went to. Patient reports she began to hyperventilate and became very anxious feeling as though her heart was racing out of her chest. RN reports at this time patient became tachycardic and hypoxic with oxygen sats dropping. An EKG was completed showing sinus tachycardia and patient was taken down for a stat CTA to rule out PE. CTA was negative. Patient's short episode of tachycardia and hypoxia lasted only a few minutes. Patient had full resolution of previously reported symptoms and episode was believed to be secondary to panic attack. Patient was monitored overnight with no further episodes noted. Patient is medically stable at this time in stable for discharge home. Event monitor has been placed and patient to follow-up with her local manager office services upon return to [facility]. Physical exam: Vital signs reviewed and stable. General: Nontoxic, no distress and appears stated age. Derm: Skin warm and dry, normal coloration for ethnicity. Head: Atraumatic, normocephalic and symmetric. Eyes: EOMs intact, no lid lag, and anicteric sclera Mouth: no lip lesions, mucus membranes moist Cardiovascular: regular rate and rhythm with normal S1S2, no murmur, positive posterior tibial pulses bilaterally, and cap refill < 2 seconds. Lungs: Respirations even, regular, and unlabored on room air. Lungs CTA bilaterally, no rhonchi, no rales, no wheezing, and no accessory muscle usage. Abdominal: soft, nontender to palpation, no guarding, no appreciable organomegaly Ext: ROM intact. No gross muscle atrophy, no edema, no contractures. Neuro: Speech clear, face symmetrical, CN II-XII grossly intact with no other noted focal neuro deficits Psych: Alert and oriented to person, place, time, and situation. Appropriate and pleasant affect. A total of 36 minutes of time were spent preparing this complex discharge reta murry Pt was discharged on 05/18/22 at 9:30 AM. Patient Condition at Discharge: Stable Plan - Discharge Summary New Discharge Prescriptions: New Aspirin 81 mg PO DAILY 90 Days #90 tab Clopidogrel [Plavix] 75 mg PO DAILY 21 Days #21 tab Continue Losartan [Cozaar] 50 mg PO DAILY Atorvastatin [Lipitor] 40 mg PO DAILY amLODIPine [Norvasc] 5 mg PO DAILY Multivitamins, Thera [Multivitamin (formulary)] 1 tab PO DAILY Naratriptan HCl [Amerge] 2.5 mg PO DAILY PRN PRN Reason: Migraine Headache Discharge Medication List Atorvastatin [Lipitor] 40 mg PO DAILY 05/15/22 [History] Losartan [Cozaar] 50 mg PO DAILY 05/15/22 [History] Multivitamins, Thera [Multivitamin (formulary)] 1 tab PO DAILY 05/15/22 [History] Naratriptan HCl [Amerge] 2.5 mg PO DAILY PRN 05/15/22 [History] amLODIPine [Norvasc] 5 mg PO DAILY 05/15/22 [History] Aspirin 81 mg PO DAILY 90 Days #90 tab 05/16/22 [Rx] Clopidogrel [Plavix] 75 mg PO DAILY 21 Days #21 tab 05/16/22 [Rx] Follow up Appointment(s)/Referral(s): Georges Avelar DO [STAFF PHYSICIAN] - 1 Week (please schedule an appointment for evaluation for event monitor. Patient wants to schedule ) Anita Blanton MD [REFERRING] - 1 Week (Patietn want to schedule ) Patient Instructions/Handouts: Transient Ischemic Attack (DC) Activity/Diet/Wound Care/Special Instructions: Activity: As tolerated. Take breaks as needed. Diet: Heart healthy and carb consistent diet. Avoid salts, or foods with hidden salts such as canned or boxed foods and frozen dinners. Extra salt makes your heart work harder and traps the fluid in your body for longer. Special Instructions: Take all of your medications as directed and remember to keep all of your doctor's appointments and follow-up as needed. Thank you for allowing us to participate in your care, it was truly a pleasure having you for our patient!!! Discharge Disposition: HOME SELF-CARE
== END 2022-05-18 10:24 | disposition home or self-care (01) | DRG 69 ==
LOC: EC 04:39 → 3SCARD 06:33 → 4SSUR 15:16
PROVIDERS: ADMIT Internal Medicine; ATTEND Internal Medicine
DX: G45.9 Transient cerebral ischemic attack, unspecified (principal); G81.91 Hemiplegia, unspecified affecting right dominant side; E86.0 Dehydration; G51.0 Bell's palsy; I10 Essential (primary) hypertension; E78.00 Pure hypercholesterolemia, unspecified; R53.1 Weakness; I08.3 Combined rheumatic disorders of mitral, aortic and tricuspid valves; H53.8 Other visual disturbances; F41.0 Panic disorder [episodic paroxysmal anxiety]; R09.02 Hypoxemia; Z79.02 Long term (current) use of antithrombotics/antiplatelets; Z79.82 Long term (current) use of aspirin; Z79.899 Other long term (current) drug therapy; Z82.49 Family history of ischemic heart disease and other diseases of the circulatory system; Z82.3 Family history of stroke
CPT/HCPCS: 36415; 70450; 70496; 70498; 70551; 71275; 80053; 80061; 80306; 83036; 84443; 84484; 85025; 85610; 85730; 93005; 93270; 93306; 96360; 96361; 96372; 99291